=== PATIENT | male | born 2005 | race Caucasian/White ===

== ENCOUNTER 2025-04-08 16:36 | Emergency (ER) | payer BC, MEDICAID ==
[~2025-04-08] VITALS: Ht 170.2 cm; Wt 67.2 kg
[2025-04-08 16:39] VITALS: TEMP 96.8
[2025-04-08 17:43] LABS: BASO # 0.1 10^3/uL (0.0-0.2); BASO % 0.3 % (0.0-1.0); EOS # 0.1 10^3/uL (0.0-0.5); EOS % 0.4 % (0.0-3.0); LYMPH # 1.8 10^3/uL (1.5-5.0); LYMPH % 12.5 % (24.0-44.0); MONO # 0.8 10^3/uL (0.0-0.8); MONO % 5.7 % (2.0-8.0); NEUTROPHILS # 11.7 10^3/uL (1.5-8.5); NEUTROPHILS % 80.7 % (36.0-66.0); PLATELET COUNT, AUTOMATED 337 10^3/uL (150-450)
[2025-04-08 18:07] LABS: ALT/SGPT 36.0 U/L (7.0-40); AST/SGOT 36.0 U/L (<34); CALCIUM LEVEL 10.5 MG/DL (8.5-10.1); CARBON DIOXIDE LEVEL 25.0 MMOL/L (20-31); CHLORIDE LEVEL 95.0 MMOL/L (98-107); CREATININE FOR GFR 1.38 MG/DL (0.70-1.30); GLOMERULAR FILTRATION RATE 74.6 (>60); POTASSIUM SERUM 3.7 MMOL/L (3.5-5.1); SODIUM LEVEL 135.0 MMOL/L (136-145)
[2025-04-08] MEDS: NS (Normal Saline) 0.9% 1,000 ML IV ONE (20:18)
[2025-04-08] MEDS: ONDANSETRON 4MG 2ML VIAL IV ONE (20:18)
[2025-04-08] MEDS: PANTOPRAZOLE 40MG VIAL IV ONE (20:18)
[2025-04-08] MEDS: ALBUTEROL 90 MCG/ACT 8 GM HFA INHALER INH ONE (20:57)
[2025-04-08] MEDS ORDERED: ISOVUE-370 76% 100 ML VIAL As Ordered ONE (21:47)
[2025-04-08 22:20] VITALS: BP 123/71
[2025-04-08] MEDS ORDERED: VENTAER INH (22:20)
[2025-04-08 22:21] VITALS: O2SAT 98
== END 2025-04-08 22:30 | disposition home or self-care (01) ==
LOC: M ED 16:36
DX: J45.909 Unspecified asthma, uncomplicated (principal); R06.02 Shortness of breath; R00.0 Tachycardia, unspecified; F17.290 Nicotine dependence, other tobacco product, uncomplicated; F12.10 Cannabis abuse, uncomplicated; Z79.51 Long term (current) use of inhaled steroids
CPT/HCPCS: 71046; 71275; 80048; 80076; 85025; 85379; 87486; 87581; 87633; 87798; 93005; 93041; 94760; 96374; 99285; J2405; J2470; Q9967